=== PATIENT | male | born 1965 | race Caucasian/White ===

== ENCOUNTER 2022-03-12 11:35 | Emergency (ER) | payer MEDICARE ==
[2022-03-12 11:44] VITALS: BP 146/96; PULSE 84; RESP 16; TEMP 97.9
[2022-03-12] MEDS ORDERED: KETOROLAC 15 MG/ML 1 ML VIAL IM STA (11:52)
--- NOTE | 2022-03-12 11:59 | ED ---
Lower Extremity Injury HPI - General Chief Complaint: Extremity Injury, Upper Stated Complaint: lt knee injury Time Seen by Provider: 03/12/22 11:46 Source: patient, RN notes reviewed Mode of arrival: ambulatory Limitations: no limitations - History of Present Illness Initial Comments: This is a 57-year-old male who presents to the emergency department for left knee pain. Patient states that he was working on his motor cycle yesterday went to turn his leg and heard a pop. He has had pain ever since. Pain is behind the knee and medial to it. 4-5 years ago, he had a meniscus injury and saw Dr. Paul, orthopedics. He was given a steroid injection into the knee, and states that he had been fine ever since. 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 Patient states he has not had the treatment in years because his lab values have been stable. Denies any fevers, chills, sore throat, cough, dyspnea, chest pain, palpitations, abdominal pain, nausea, vomiting, diarrhea, back pain, or headaches. MD Complaint: knee injury (left) Injury: Knee: Left Place: home - Related Data Home Medications Medication Instructions Recorded Confirmed Cholecalciferol [Vitamin D3 (25 2,000 unit PO DAILY 04/03/14 09/05/17 Mcg = 1000 Iu)] Multivitamin [Men's Multi-Vitamin] 1 tab PO DAILY 04/03/14 09/05/17 Indapamide 1.25 mg PO DAILY 05/02/16 09/05/17 Levothyroxine Sodium [Synthroid] 112 mcg PO DAILY 05/02/16 09/05/17 Atorvastatin [Lipitor] 20 mg PO DAILY 09/03/17 09/05/17 HYDROcodone/APAP 5-325MG [Sharon 1 tab PO Q4HR PRN 09/03/17 09/05/17 5-325] Reclast Dose Unknown IV DIRECTED 09/03/17 Previous Rx's Medication Instructions Recorded EPINEPHrine [Epipen 2-Brodie] 0.3 mg IM ONCE PRN #1 ml 05/02/16 Allergies Allergy/AdvReac Type Severity Reaction Status Date / Time venom-honey bee Allergy Anaphylaxis Verified 03/12/22 11:45 [bee venom (honey bee)] Review of Systems ROS Statement: Those systems with pertinent positive or pertinent negative responses have been documented in the HPI. ROS Other: All systems not noted in ROS Statement are negative. Past Medical History Past Medical History: Hyperlipidemia, Thyroid Disorder Additional Past Medical History / Comment(s): bone disease (FIBROUS DYSPLAGIA), KIDNEY STONES, HIATAL HERNIA History of Any Multi-Drug Resistant Organisms: None Reported Past Surgical History: Heart Catheterization, Hernia Repair Additional Past Surgical History / Comment(s): SURGERY TO REPAIR BROKEN TOES Past Anesthesia/Blood Transfusion Reactions: No Reported Reaction Past Psychological History: No Psychological Hx Reported Past Alcohol Use History: Occasional Past Drug Use History: None Reported - Past Family History Mother Family Medical History: No Reported History Additional Family Medical History / Comment(s): MITRAL VALVE ISSUE, A FEW CABGS, PACEMAKER, TIA, CVA, BACK SURGERIES Father Family Medical History: Rheumatoid Arthritis (RA) Additional Family Medical History / Comment(s): CABG, LUNG ISSUES RELATED TO RA General Exam Limitations: no limitations General appearance: alert, in no apparent distress Head exam: Present: atraumatic, normocephalic, normal inspection Respiratory exam: Present: normal lung sounds bilaterally. Absent: respiratory distress, wheezes, rales, rhonchi, stridor Cardiovascular Exam: Present: regular rate, normal rhythm, normal heart sounds. Absent: systolic murmur, diastolic murmur, rubs, gallop, clicks Left Knee exam: Present: normal inspection, tenderness (medial to the patella), pain/laxity with valgus. Absent: full ROM (secondary to pain), swelling, ecchymosis, deformity, pain w/ pronation/supination, posterior draw sign Neurovascular tendon exam: Present: no vascular compromise. Absent: pulse deficit, abnormal cap refill Neurological exam: Present: alert, oriented X3, CN II-XII intact Psychiatric exam: Present: normal affect, normal mood Skin exam: Present: warm, dry, intact, normal color. Absent: rash Course Vital Signs 03/12/22 11:41 Temperature 97.9 F Pulse Rate 84 Respiratory 16 Rate Blood Pressure 146/96 O2 Sat by Pulse 98 Oximetry Medical Decision Making - Medical Decision Making This is a 57-year-old male who presents to the emergency department with left knee pain. Explanation of the patient's symptoms and physical exam are most consistent with a meniscus injury, which the patient has had the past. X-ray revealed small fluid at the suprapatellar bursa, consistent with an injury. IM Toradol provided. Patient advised to apply ice for the first 2 days followed by heat there afterwards. Also instructed him to elevate the leg, wear his knee brace, and alternate with Tylenol and ibuprofen as needed for pain. Information for orthopedic follow-up listed on his discharge form, advised to contact their office for follow-up next week. Return precautions reviewed in depth, the patient is instructed to return to the emergency department with any new, worsening, or concerning symptoms. Patient verbalized understanding. This case was discussed in detail with the attending ED physician. Presentation, findings, and treatment plan discussed in detail as well. - Radiology Data Radiology results: report reviewed, image reviewed Disposition Clinical Impression: Suprapatellar bursitis of left knee Disposition: HOME SELF-CARE Instructions (If sedation given, give patient instructions): Knee Bursitis (ED), Knee Pain (ED) Additional Instructions: Return to the emergency department with any new, worsening, or concerning symptoms. Apply ice for the first 2 days followed by heat there afterwards, elevate the leg and alternate with Tylenol and ibuprofen for pain relief. Wear your knee brace. Contact the orthopedic office listed on your discharge forms for further evaluation. Follow up with your primary care provider in 1-2 days. Is patient prescribed a controlled substance at d/c from ED?: No Referrals: Orion Paul DO [Primary Care Provider] - 1-2 days Reginaldo Augustine DO [Doctor of Osteopathic Medicine] - 1-2 days
--- NOTE | 2022-03-12 12:13 | XR ---
EXAMINATION TYPE: XR knee complete LT DATE OF EXAM: 03/12/2022 COMPARISON: NONE HISTORY: Pain TECHNIQUE: Three views are submitted. FINDINGS: Joint spaces are preserved. Osseous structures are intact. No acute fracture seen. Faint vascular calcifications noted. Small amount of fluid in the suprapatellar bursa. IMPRESSION: 1. No acute fracture or dislocation. Small amount of fluid in the suprapatellar bursa suspected.
== END 2022-03-12 12:53 | disposition home or self-care (01) ==
LOC: EC 11:35
DX: M70.52 Other bursitis of knee, left knee (principal); E78.5 Hyperlipidemia, unspecified; E07.9 Disorder of thyroid, unspecified; Z79.899 Other long term (current) drug therapy; Z79.890 Hormone replacement therapy; Z91.030 Bee allergy status
CPT/HCPCS: 73562; 99283; 96372; J1885

== ENCOUNTER → 2024-05-13 | Outpatient (CLI) | payer MEDICARE, OTHER | END | disposition home or self-care (01) | LOC: LABPRL 09:10 | PROVIDERS: ATTEND Nurse Practitioner Family | DX: E03.9 Hypothyroidism, unspecified (principal); E11.9 Type 2 diabetes mellitus without complications | CPT/HCPCS: 80053; 80061; 84439; 84443 ==